=== PATIENT | female | born 1965 | race Caucasian/White ===

== ENCOUNTER 2016-04-30 07:20 | Day surgery (SDC) | payer OTHER ==
--- NOTE | 2016-04-29 19:32 | HP ---
ALLISON JOHN [id number] HISTORY OF PRESENT ILLNESS: Allison is a 50-year-old who presents to clinic with chief complaint of bunion pain in the left foot for the past several years, treated conservatively with [id number] inserts, arch supports, changes in shoe gear and anti-inflammatories, with only minimal help. She has pain anytime she is up on her feet for more than two or three hours a day, progressively getting worse through the day depending on shoe gear. PAST MEDICAL HISTORY: Significant for: 1. Depression. 2. Anxiety. 3. Hepatitis. 4. Thyroid condition. REVIEW OF SYSTEMS: Significant for depression, anxiety, hepatitis and a thyroid condition. ALLERGIES: Codeine and sulfa. CURRENT MEDICATIONS: She will supply us with a med list on admission. PAST SURGICAL HISTORY: She has had: 1. Cholecystectomy. 2. Tonsillectomy. 3. Thyroid tumor removed. SOCIAL HISTORY: She states light usage of alcohol. No tobacco use. FAMILY HISTORY: Significant for arthritis, diabetes, hypertension and heart disease. PHYSICAL EXAMINATION: VITAL SIGNS: Blood pressure of 149/52. Pulse of 95. HEENT: Head is normocephalic. External exam of the ears and eyes is negative. Throat shows no masses or inflammation. LUNGS: Clear to auscultation in all dhaliwal. HEART: Shows a regular rate and rhythm. No murmurs or gallops. LOWER EXTREMITIES: Pedal pulses intact. Filling time of 2-3 seconds. Color of skin is pink. NEUROLOGIC: Gross sensation intact bilaterally. DERMATOLOGIC: Temperature, texture and turgor are within normal limits. There is positive hair growth at digits. MUSCULOSKELETAL: She has a hallux abductovalgus deformity of the left 1st metatarsophalangeal joint, with pain to range of motion, pain in the sesamoid apparatus, decreased range of motion at 40 degrees, 45 degrees dorsal and 15-20 degrees plantarly. IMAGING: X-rays show a 12-13 degree IM angle of the 1st metatarsal, tibial sesamoid position of 4-5. PLAN: We are scheduling her for a bunionectomy, with possible osteotomy of the left hallux. This will be done under MAC sedation with local anesthetic block. All risks and complications inherent to the procedure are gone over with the patient and she understands these. There are no contraindications at this time. She will be scheduled at [facility] on 04/30/2016, and will be followed at that time.
[~2016-04-30 07:20] MED LIST: CEFAZOLIN SODIUM 2 GRAM PREMIX 100 ML IV ONE; CEFAZOLIN SODIUM 2 GRAM PREMIX 100 ML IV PRN; IV START KIT ONE; LACTATED RINGERS 1,000 ML ONE
[2016-04-30] MEDS ORDERED: LIDOCAINE 2% (PRES FREE) 5 ML VIAL ONE (07:59)
[2016-04-30] MEDS ORDERED: PROPOFOL 40 ML IV ONE (07:59)
[2016-04-30] MEDS ORDERED: MIDAZOLAM HCL 1 MG/ML 2ML VIAL ONE ×2 (08:00→09:28)
[2016-04-30] MEDS ORDERED: FENTANYL 100 MCG/2 ML VIAL ONE (08:00)
[2016-04-30 08:09] LABS: HEMOGLOBIN 13.5 gm/l (12.0-16.0)
[2016-04-30] MEDS ORDERED: BUPIVACAINE 0.5% (PRES FREE) 30 ML VIAL ONE (08:56)
[2016-04-30] MEDS ORDERED: LIDOCAINE 1% (PRES FREE) 30 ML VIAL ONE (08:56)
[2016-04-30] MEDS ORDERED: PROPOFOL 20 ML IV ONE ×2 (09:13→09:51)
[2016-04-30] MEDS ORDERED: ONDANSETRON 4 MG/2ML 2 ML VIAL ONE (10:13)
[2016-04-30] MEDS ORDERED: ON-Q PUMP/ROPIVACAINE 0.2% 400 ML in PREMIX BAG 1 EACH NB SCH (10:32)
[2016-04-30] MEDS ORDERED: HYDROMORPHONE HCL 2 MG/ML SYRINGE IV PRN (10:32)
[2016-04-30] MEDS ORDERED: ON-Q PUMP/ROPIVACAINE 0.2% 450 ML ONE (10:38)
--- NOTE | 2016-04-30 10:47 | RAD ---
INTRAOPERATIVE FLUOROSCOPY HISTORY: Left big toe repair. TECHNIQUE: 24 seconds of fluoroscopy time was provided for Dr. Galvez for purposes of procedural guidance. 2 fluoroscopic spot images were submitted for review. FINDINGS: Image demonstrates wire screw fixation for first metatarsal osteotomy, correlate for hallux valgus repair. IMPRESSION: Fluoroscopy provided for procedural guidance.
[2016-04-30] MEDS ORDERED: HYDROMORPHONE HCL 1 MG/ML SYRINGE ONE (11:37)
--- NOTE | 2016-04-30 12:46 | OP ---
Lashawn Silva DATE OF SURGERY: 04/30/2016 SURGEON: Mati Galvez M.D. PREOPERATIVE DIAGNOSES: Hallux adductor valgus with painful bunion left first metatarsophalangeal joint. POSTOPERATIVE DIAGNOSES: Hallux adductor valgus with painful bunion left first metatarsophalangeal joint. PROCEDURE: Bunionectomy with distal osteotomy in the first metatarsal with Raffi osteotomy of the left hallux. ANESTHESIA: MAC sedation with local anesthetic block to the first ray using 1% Lidocaine and 0.5% Marcaine a total of 18 mL. HEMOSTASIS: Ankle tourniquet inflated to 250 mmHg for a total of 54 minutes left ankle. ESTIMATED BLOOD LOSS: Less than 20 mL. MATERIALS: 3-0 Vicryl, 3-0 Prolene, and one On-Q pain pump, one size 10 osteo-staple, two 3-0 cannulated cortical screws, one 14 and one 18 mm in length. DESCRIPTION OF PROCEDURE: The patient was brought into the operating room and laid on the operating room table in supine position. After she was adequately sedated we anesthetized the area with the above stated anesthetic block in a standard sterile fashion. Using an Esmarch we exsanguinated blood from the left foot and inflated the ankle tourniquet at this time. Attention was drawn to the dorsum of the left foot where a longitudinal incision was made on the dorsal aspect of the first metatarsophalangeal joint running medial to the EHL tendon. Incision ran about 4 cm proximal to the joint line and 2 cm distal to the joint line. Incision was deepened to the epidermis and dermis. All superficial vessels were Bovie cautery. Using sharp dissection we dissected down to the periosteum and joint capsule of the first metatarsophalangeal joint. Using the same sharp dissection we performed a dorsal capsulotomy reflected the capsular tissue off of the head of the first metatarsal and off the base of the proximal phalanx. Once we had adequate visualization of the medial eminence using a sagittal saw we removed the eminence off the head of the first metatarsal. Through the same incision we went into the first intermetatarsal space with Metzenbaum scissors and we dissected down to the conjoint tendon of the adductor muscle. Using sharp dissection we performed the lateral cuts lower and reflected the conjoint tendon off the base of the proximal phalanx and head of the first metatarsal. Once adequate lateral release was achieved we sridevi our attention back to the first metatarsal where we drove a smooth 0.045 K-wire transversely across the first metatarsal shaft approximately midline in the center of the shaft about 1 cm proximal to the articular surface of the metatarsal head. This wire was driven in position to maintain length and plantar flexed the osteotomy during transposition. We made two osteotomy cuts one plantar at about 23 degrees, one dorsal at about 45 degrees. These osteotomy cuts bilateral cortices. Once we had achieved these two cuts we removed the K-wire out the wound, took the capital fragment, pushed it over 3 to 4 mm and retrograded this back on the shaft of the metatarsal. We then fixated this temporarily with two 0.045 K-wires. Then we placed these with a 3.0 cortical cannulated screw, two of these one 14 and one 18. We checked the length of these screws in position with x-ray and noted to be in good anatomical alignment. Once we had achieved good compression of the osteotomy we removed the redundant bone off the medial side of the first metatarsal. We took a bone silvestre and burred all edges of the bone round and smooth. We removed the dorsal lip off the head of the first metatarsal. We then sridevi our attention back to the base of the proximal phalanx where a transverse bone cut was made starting on the lateral cortex through the medial cortex, but the lateral cortex intact, this was about 1 cm from the articular surface of the base of the proximal phalanx. A second bone cut was made at about a 15 to 20 degree angle to this removing a 3 mm wedge of bone out of the base of the proximal phalanx. We compressed the two bone cuts together and fixated this with a size 10 osteo-staple in a standard fashion. We irrigated the wound with normal saline and closed the periosteum and joint capsule back together with 3-0 Vicryl. We placed an On-Q pain pump in the wound finding the pump to be working functional. We then closed the superficial structures with 3-0 Vicryl in a simple interrupted fashion. Closed the skin with 3-0 Prolene in a horizontal mattress fashion. Wound was dressed with Xeroform gauze and dry sterile dressings. Patient tolerated the procedure well. The tourniquet was let down. There was no perfusion of the foot. She left the operating room with stable vital signs, stable, and in no apparent distress. Follow up in my office in 72 hours for postoperative check. JOB: [id number]
== END 2016-04-30 13:00 | disposition home or self-care (01) ==
LOC: SDC 07:20
PROVIDERS: ATTEND Podiatrist
PROC: 0QBP0ZZ Excision of Left Metatarsal, Open Approach (ICD-10-PCS; principal; 2016-04-30)
DX: M21.612 Bunion of left foot (principal); M20.12 Hallux valgus (acquired), left foot; F32.9 Major depressive disorder, single episode, unspecified; F41.9 Anxiety disorder, unspecified; K75.9 Inflammatory liver disease, unspecified; E07.9 Disorder of thyroid, unspecified; Z88.5 Allergy status to narcotic agent; Z88.2 Allergy status to sulfonamides
CPT/HCPCS: 85014; 85018; 76000; 73620; 28296; J1170; J3010; J2250 ×2; J2001; J2405; J7120; J2795 ×2; A4306; J0690